=== PATIENT | female | born 1975 | race Caucasian/White ===

== ENCOUNTER 2017-06-11 15:05 | Emergency (ER) | payer BC, OTHER ==
[~2017-06-11] VITALS: Ht 152.4 cm; Wt 75.0 kg
[2017-06-11 15:12] VITALS: TEMP 36.7; Ht 152.4 cm; Wt 75.0 kg
[2017-06-11 15:20] VITALS: O2SAT 100
[2017-06-11] MEDS ORDERED: NITROGLYCERIN 0.4 MG SL PER TAB CHARGE SL STA (15:27)
[2017-06-11] MEDS ORDERED: ONDANSETRON INJ 2 MG/ML 2 ML VIAL IV STA (15:27)
[2017-06-11] MEDS ORDERED: MoRPHine SULFATE 4 MG/ML 1 ML CARP\\VIAL IV STA (15:27)
[2017-06-11] MEDS ORDERED: ASPIRIN 324 MG CHEW PO STA (15:27)
--- NOTE | 2017-06-11 15:34 | EMERGENCY ROOM VISIT NOTE ---
History First contact with patient: 15:15 Chief Complaint: CHEST PAIN Stated Complaint: CHEST PAIN Nursing Triage Summary: Pt. reports chest pressure/heaviness that started this morning. She also reports pain that radiates down the left arm and has tingling in her fingers. History of Present Illness The patient is a 41 year old female who presents to the Emergency Room via private vehicle with complaints of "chest pain". The patient states that around 8 AM she was at work, and developed sudden onset external chest pain that radiates to her left arm, and is described as a crushing sensation. She rates the pain as a 7/10. She denies any cardiac history or history of blood clots. Her grandmother does have a significant cardiac history. She states the pain is not worse with pressing, but is worse with deep inspiration. She does not smoke. She denies chance of . Review of Systems A complete 10-point Review of Systems was discussed with the patient, with pertinent positives and negatives listed in the History of Present Illness. All remaining Review of Systems questions can be considered negative unless otherwise specified. Past Medical/Surgical History No pertinent. Family History Maternal grandmother significant cardiac history. Social History Smoking Status: Never Smoker Stable. Current/Historical Medications No Active Prescriptions or Reported Meds Physical Exam Vital Signs Date Time Temp Pulse Resp B/P (MAP) Pulse Ox O2 Delivery O2 Flow Rate FiO2 06/11/17 21:15 96 15 152/97 98 06/11/17 19:30 85 15 171/90 97 Room Air 06/11/17 19:05 94 16 169/106 97 Room Air 06/11/17 18:01 94 06/11/17 17:30 79 16 171/83 98 Room Air 06/11/17 16:16 83 21 172/79 100 Room Air 06/11/17 15:29 90 06/11/17 15:20 100 Room Air 06/11/17 15:20 100 Room Air 06/11/17 15:12 36.7 94 20 213/94 98 Room Air Physical Exam VITAL SIGNS - Vital signs and nursing notes were reviewed. Stable. Hypertensive. GENERAL -41-year-old female appearing her stated age who is in no acute distress. Communicates well with provider and answers questions appropriately. SKIN - Without rashes. HEAD - NC/AT. EYES - PERRL with EOMI bilaterally. Sclera anicteric. EARS - No deformities of external structures noted on gross examination bilaterally. NOSE - Midline and without cyanosis. No epistaxis or purulent drainage noted. MOUTH/OROPHARYNX - Without perioral cyanosis. NECK - Neck with FROM. Supple to palpation. LUNGS - Chest wall symmetric without accessory muscle use, intercostals retractions, or central cyanosis. Normal vesicular breath sounds CTA B/L. No wheezes, rales, or rhonchi appreciated. CARDIAC - RRR with S1/S2. No murmur, rubs, or gallops appreciated. ABDOMEN - Abdominal contour normal without pulsations or visible masses. BS normoactive all four quadrants. No tenderness, palpable masses, hepatosplenomegaly, or ascites noted. EXTREMITIES - No clubbing or peripheral cyanosis. No pretibial edema present. + 5/5 strength noted in UE/LE bilaterally. NEUROLOGIC - Cranial nerves II through XII grossly intact. Sensory intact to light touch throughout. PSYCH - A&O, and cooperates fully with examiner. Pt is very pleasant and interacts well with examiner. Medical Decision & Procedures ER Provider Diagnostic Interpretation: CT ANGIOGRAPHY OF THE CHEST, PULMONARY EMBOLUS PROTOCOL CLINICAL HISTORY: Inspiratory chest pain. Elevated d-dimer. COMPARISON STUDY: Chest radiograph performed earlier today. TECHNIQUE: Following IV administration of 78 mL of Optiray-320, helical axial images of the chest were obtained utilizing the pulmonary embolus protocol. Maximal intensity projections and sagittal and coronal reformats were viewed on an independent 3D workstation. IV contrast was administered without complication. A dose lowering technique was utilized adhering to the principles of ALARA. CT DOSE: 600.31 mGy.cm FINDINGS: No pulmonary emboli are identified. The size of the heart is at the upper limits of normal. There is no pericardial effusion. There is no thoracic aortic dissection. No enlarged axillary, mediastinal or hilar lymph nodes are present. There is no consolidation to suggest pneumonia. Central airways are patent. No pneumothorax or pleural effusion is present. There are no suspicious pulmonary nodules. Bony thorax is unremarkable. There is probable fatty infiltration of the liver. IMPRESSION: 1. No pulmonary emboli identified. 2. No acute intrathoracic findings. 3. Fatty infiltration of the liver. Electronically signed by: Sylvester Henry M.D. 06/11/2017 6:40 PM Dictated Date/Time: 06/11/2017 6:34 PM CHEST ONE VIEW PORTABLE HISTORY: Atypical Chest pain COMPARISON: None. FINDINGS: The lungs are clear. Cardiac silhouette is normal in size. No pleural effusions. No pneumothorax. IMPRESSION: No acute process. Electronically signed by: Stephen Mosquera M.D. 06/11/2017 3:58 PM Dictated Date/Time: 06/11/2017 3:57 PM Laboratory Results 06/11/17 16:56 Red Blood Count 4.24, Mean Corpuscular Volume 92.2, Mean Corpuscular Hemoglobin 31.8, Mean Corpuscular Hemoglobin Concent 34.5, Mean Platelet Volume 9.8, Neutrophils (%) (Auto) 69.0, Lymphocytes (%) (Auto) 22.1, Monocytes (%) (Auto) 7.7, Eosinophils (%) (Auto) 0.6, Basophils (%) (Auto) 0.2, Neutrophils # (Auto) 7.87, Lymphocytes # (Auto) 2.52, Monocytes # (Auto) 0.88, Eosinophils # (Auto) 0.07, Basophils # (Auto) 0.02 06/11/17 16:56 Test 06/11/17 16:20 06/11/17 16:56 06/11/17 19:25 Urine Color YELLOW Urine Appearance CLOUDY (CLEAR) Urine pH 5.0 (4.5-7.5) Urine Specific [place] 1.017 (1.000-1.030) Urine Protein NEG (NEG) Urine Glucose (UA) NEG (NEG) Urine Ketones TRACE (NEG) Urine Occult Blood TRACE (NEG) Urine Nitrite NEG (NEG) Urine Bilirubin NEG (NEG) Urine Urobilinogen NEG (NEG) Urine Leukocyte Esterase NEG (NEG) Urine WBC (Auto) 0 /hpf (0-5) Urine RBC (Auto) 0-4 /hpf (0-4) Urine Hyaline Casts (Auto) 1-5 /lpf (0-5) Urine Epithelial Cells (Auto) 5-10 /lpf (0-5) Urine Bacteria (Auto) NEG (NEG) Urine Test NEG (NEG) White Blood Count 11.40 K/uL (4.8-10.8) Red Blood Count 4.24 M/uL (4.2-5.4) Hemoglobin 13.5 g/dL (12.0-16.0) Hematocrit 39.1 % (37-47) Mean Corpuscular Volume 92.2 fL (80-100) Mean Corpuscular Hemoglobin 31.8 pg (25-34) Mean Corpuscular Hemoglobin Concent 34.5 g/dl (32-36) Platelet Count 353 K/uL (130-400) Mean Platelet Volume 9.8 fL (7.4-10.4) Neutrophils (%) (Auto) 69.0 % Lymphocytes (%) (Auto) 22.1 % Monocytes (%) (Auto) 7.7 % Eosinophils (%) (Auto) 0.6 % Basophils (%) (Auto) 0.2 % Neutrophils # (Auto) 7.87 K/uL (1.4-6.5) Lymphocytes # (Auto) 2.52 K/uL (1.2-3.4) Monocytes # (Auto) 0.88 K/uL (0.11-0.59) Eosinophils # (Auto) 0.07 K/uL (0-0.5) Basophils # (Auto) 0.02 K/uL (0-0.2) RDW Standard Deviation 41.6 fL (36.4-46.3) RDW Coefficient of Variation 12.3 % (11.5-14.5) Immature Granulocyte % (Auto) 0.4 % Immature Granulocyte # (Auto) 0.04 K/uL (0.00-0.02) Prothrombin Time 10.4 SECONDS (9.0-12.0) Prothromb Time International Ratio 1.0 (0.9-1.1) Activated Partial Thromboplast Time 25.3 SECONDS (21.0-31.0) Partial Thromboplastin Ratio 1.0 D-Dimer 560 ug/L FEU (0-500) Anion Gap 9.0 mmol/L (3-11) Est Creatinine Clear Calc Drug Dose 85.9 ml/min Estimated GFR () 109.4 Estimated GFR (Non- 94.4 BUN/Creatinine Ratio 11.8 (10-20) Calcium Level 8.8 mg/dl (8.5-10.1) Magnesium Level 2.2 mg/dl (1.8-2.4) Total Bilirubin 0.4 mg/dl (0.2-1) Aspartate Amino Transf (AST/SGOT) 13 U/L (15-37) Alanine Aminotransferase (ALT/SGPT) 29 U/L (12-78) Alkaline Phosphatase 79 U/L (45-117) Total Creatine Kinase 104 U/L (26-192) Creatine Kinase MB 1.3 ng/ml (0.5-3.6) Creatine Kinase MB Ratio 1.3 (0-3.0) Total Protein 7.8 gm/dl (6.4-8.2) Albumin 3.8 gm/dl (3.4-5.0) Globulin 4.0 gm/dl (2.5-4.0) Albumin/Globulin Ratio 1.0 (0.9-2) Lipase 232 U/L (73-393) Thyroid Stimulating Hormone (TSH) 2.020 uIu/ml (0.300-4.500) Lyme Disease IgG Antibody NEG (NEG) Lyme Disease IgM Antibody NEG (NEG) Troponin I < 0.015 ng/ml (0-0.045) Medications Administered Medications (Trade) Dose Ordered Sig/Ender Route Start Time Stop Time Status Last Admin Dose Admin Morphine Sulfate (MoRPHine SULFATE INJ) 4 mg NOW STAT IV 06/11/17 15:27 06/11/17 15:30 DC 06/11/17 16:18 4 MG Ondansetron HCl (Zofran Inj) 4 mg NOW STAT IV 06/11/17 15:27 06/11/17 15:30 DC 06/11/17 16:19 4 MG Aspirin (Aspirin Chew) 324 mg NOW STAT PO 06/11/17 15:27 06/11/17 15:30 DC 06/11/17 16:17 324 MG Nitroglycerin (Nitrostat Tab) 0.4 mg NOW STAT SL 06/11/17 15:27 06/11/17 15:30 DC 06/11/17 16:18 0.4 MG Al Hydroxide/Mg Hydroxide (Maalox Susp) 30 ml STK-MED ONCE .ROUTE 06/11/17 20:59 06/11/17 21:00 DC 06/11/17 21:01 30 ML Lidocaine HCl (Viscous Lidocaine 2% Soln) 20 ml STK-MED ONCE .ROUTE 06/11/17 20:59 06/11/17 21:00 DC 06/11/17 21:01 20 ML Medical Decision Patient was seen and evaluated as above. She presents to us today with chest pain, and hypertension. This is new onset since 8 AM this morning. No underlying past medical history contributory to her symptoms here today. She was given aspirin, and nitroglycerin. She was also given morphine. She is reevaluated and feeling better. Troponin was negative. EKG reveals normal sinus rhythm, with a nonspecific ST segment abnormality. Repeat troponin after over 2 hours was still negative. It is unlikely cardiac, however given her hypertension so this must still be considered. D-dimer was elevated, therefore CT the chest was obtained. Results as above. She was informed upon the fatty infiltration of the liver. She was offered inpatient observation for her chest pain, and after discussing benefits versus risks, she elected to go home, and follow-up with the workup in the outpatient setting. I do believe this is reasonable. CBC revealed slight leukocytosis, which I believe to be at this time nonemergent. No concerning anemia. No concerning metabolic abnormality. Urine negative. Negative test. Lyme disease testing negative. This time the patient does appear stable for outpatient management. Case was discussed with the attending physician. Patient was educated upon management, educated upon worrisome symptoms which to return, had questions answered prior to discharge, and was discharged home in good condition. Patient was given a GI cocktail prior to discharge. In evaluation treatment this patient the following differential diagnoses were entertained: MO, PE, costochondritis, reflux, among others. Impression Primary Impression: Chest wall pain Departure Information Dispostion Home / Self-Care Condition GOOD Prescriptions No Active Prescriptions or Reported Meds Referrals No Doctor, Assigned (PCP) Forms Call Back Authorization, HOME CARE DOCUMENTATION FORM, IMPORTANT VISIT INFORMATION Patient Instructions My [facility] Additional Instructions You have been treated in the Emergency Department your chest Pain. For pain control, you can use the following [id number] medicines (if >12 yo): - Regular strength (325mg/tab) Tylenol (acetaminophen) 2 tabs every 4-6 hours as needed. Do not exceed 12 tablets in a 24 hour period. Avoid taking more than 3 grams (3000 mg) of Tylenol per day. This includes any other sources of acetaminophen you may take on a regular basis. - Regular strength (200 mg/tab) Advil (ibuprofen) 1-2 tabs every 4-6 hours as needed. Do not exceed a dose of 3200 mg per day. Drink plenty of water and stay well hydrated. As with any trip to the Emergency Department, you should follow-up with your Primary Care Provider from today's visit. I recommend potentially an echo as well as further heart testing as potentially arranged by your family doctor. Return to the emergency department if your symptoms persist despite treatment plan outlined above or if the following symptoms occur: increased fevers, chills , worsening nausea/vomiting, blood in your stool or urine or worsening chest pain. Please return with any new/concerning symptoms.
--- NOTE | 2017-06-11 15:59 | DIAGNOSTIC IMAGING REPORT ---
CHEST ONE VIEW PORTABLE HISTORY: Atypical Chest pain COMPARISON: None. FINDINGS: The lungs are clear. Cardiac silhouette is normal in size. No pleural effusions. No pneumothorax. IMPRESSION: No acute process. Electronically signed by: Stephen Mosquera M.D. 06/11/2017 3:58 PM Dictated Date/Time: 06/11/2017 3:57 PM
[2017-06-11 16:40] LABS: MANUAL MICROSCOPIC REQUIRED? NO; REVIEW REQ? NO; URINE APPEARANCE CLOUDY (CLEAR); URINE BILIRUBIN NEG (NEG); URINE COLOR YELLOW; URINE NITRITE NEG (NEG); URINE SPECIFIC GRAVITY 1.017 (1.000-1.030); UROBILINOGEN NEG (NEG); ZZUR CULT IF INDIC CLEAN CATCH NO
[2017-06-11 17:11] LABS: BASO % 0.2 %; BASO ABS # 0.02 K/uL (0-0.2); COMPLETE YES; EOS % 0.6 %; HEMATOCRIT 39.1 % (37-47); IG% 0.4 %; LYMPH % 22.1 %; LYMPH ABS # 2.52 K/uL (1.2-3.4); MEAN CELL VOLUME 92.2 fL (80-100); MEAN CORPUSCULAR HEMOGLOBIN 31.8 pg (25-34); MEAN CORPUSCULAR HGB CONC 34.5 g/dl (32-36); MEAN PLATELET VOLUME 9.8 fL (7.4-10.4); MONO % 7.7 %; PLATELET COUNT 353 K/uL (130-400); RED BLOOD COUNT 4.24 M/uL (4.2-5.4)
[2017-06-11 17:23] LABS: PROTHROMBIN TIME (PATIENT) 10.4 SECONDS (9.0-12.0)
[2017-06-11 17:33] LABS: ALT/SGPT 29 U/L (12-78); AST/SGOT 13 U/L (15-37); BLOOD UREA NITROGEN 9 mg/dl (7-18); BUN/CREATININE RATIO 11.8 (10-20); CALCIUM 8.8 mg/dl (8.5-10.1); CARBON DIOXIDE 22 mmol/L (21-32); CHLORIDE 109 mmol/L (98-107); CREATININE 0.78 mg/dl (0.60-1.20); GLUCOSE 96 mg/dl (70-99); MAGNESIUM 2.2 mg/dl (1.8-2.4); POTASSIUM 3.7 mmol/L (3.5-5.1); SODIUM 140 mmol/L (136-145)
[2017-06-11 17:44] LABS: ALKALINE PHOSPHATASE 79 U/L (45-117); CKMB/CK RATIO 1.3 (0-3.0)
[2017-06-11] MEDS ORDERED: OPTIRAY 320 IV PRN (18:00)
[2017-06-11 18:06] LABS: LYME DISEASE AB IGG NEG (NEG); LYME DISEASE AB IGM NEG (NEG)
--- NOTE | 2017-06-11 18:41 | DIAGNOSTIC IMAGING REPORT ---
CT ANGIOGRAPHY OF THE CHEST, PULMONARY EMBOLUS PROTOCOL CLINICAL HISTORY: Inspiratory chest pain. Elevated d-dimer. COMPARISON STUDY: Chest radiograph performed earlier today. TECHNIQUE: Following IV administration of 78 mL of Optiray-320, helical axial images of the chest were obtained utilizing the pulmonary embolus protocol. Maximal intensity projections and sagittal and coronal reformats were viewed on an independent 3D workstation. IV contrast was administered without complication. A dose lowering technique was utilized adhering to the principles of ALARA. CT DOSE: 600.31 mGy.cm FINDINGS: No pulmonary emboli are identified. The size of the heart is at the upper limits of normal. There is no pericardial effusion. There is no thoracic aortic dissection. No enlarged axillary, mediastinal or hilar lymph nodes are present. There is no consolidation to suggest pneumonia. Central airways are patent. No pneumothorax or pleural effusion is present. There are no suspicious pulmonary nodules. Bony thorax is unremarkable. There is probable fatty infiltration of the liver. IMPRESSION: 1. No pulmonary emboli identified. 2. No acute intrathoracic findings. 3. Fatty infiltration of the liver. Electronically signed by: Sylvester Henry M.D. 06/11/2017 6:40 PM Dictated Date/Time: 06/11/2017 6:34 PM
[2017-06-11] MEDS ORDERED: GI COCKTAIL PO STA (20:26)
[2017-06-11] MEDS ORDERED: ALUMINUM/MAGNESIUM SUSP 30 ML UDC ONE (20:59)
[2017-06-11] MEDS ORDERED: LIDOCAINE HCL 2% VISC SOLN 20 ML UDC ONE (20:59)
[2017-06-11 21:15] VITALS: BP 152/97; PULSE 96; O2SAT 98
== END 2017-06-11 21:15 | disposition home or self-care (01) ==
LOC: C.EDB 15:07 → C.EDA 21:15
DX: R07.89 Other chest pain (principal); R03.0 Elevated blood-pressure reading, without diagnosis of hypertension; K76.0 Fatty (change of) liver, not elsewhere classified

== ENCOUNTER 2017-12-17 05:47 | Emergency (ER) | payer BC ==
[~2017-12-17] VITALS: Ht 154.9 cm; Wt 87.5 kg
[2017-12-17 05:57] VITALS: TEMP 36.7; Ht 154.9 cm; Wt 87.5 kg
--- NOTE | 2017-12-17 06:15 | EMERGENCY ROOM VISIT NOTE ---
History Report prepared by Jesse: Bryant Mills Under the Supervision of: Dr. Gustavo Ludwig M.D. First contact with patient: 06:02 Chief Complaint: URINARY SYMPTOMS Stated Complaint: BLOOD IN URINE Nursing Triage Summary: Pt was to [facility] on Thursday for same sx and was told she didn't have a UTI. Pt presents today with blood in her urine and pain in lower back. History of Present Illness The patient is a 42 year old female who presents to the Emergency Room with complaints of an episode of hematuria occurring today. The patient states that she went to an acute care facility yesterday because she thought she had a UTI. She notes that she was told that she did not have a UTI despite her symptoms. She reports that she has pressure in her bladder and was having urinary burning. The patient states that she had hematuria this morning, prompting her visit to the emergency department. She also complains of back pain, but is unsure if her back pain is related to her urinary symptoms as she was moving wood a few days ago. She denies any leg swelling, nausea, diarrhea, and rashes. She notes that her pain worsens with walking. She reports that she has a history of UTIs, with her last infection being 7-8 years ago. The patient states that she also has a history of a section. Source of History: patient Onset: today Position: other (bladder) Quality: pressure, burning, other (hematuria) Timing: other (an episode) Modifying Factors (Worsening): other (walking) Associated Symptoms: + back pain, No nausea, No diarrhea, No rash Note: The patient also denies any leg swelling . Review of Systems See HPI for pertinent positives & negatives. A total of 6 systems reviewed and were otherwise negative. Past Medical & Surgical Medical Problems: (1) UTI (urinary tract infection) Surgical Problems: (1) Previous section Family History No pertinent family history stated. Social History Smoking Status: Never Smoker Marital Status: Housing Status: lives with friends Occupation Status: employed Current/Historical Medications Scheduled Cephalexin Monohydrate (Keflex), 500 MG PO TID Scheduled PRN Phenazopyridine HCl (Pyridium), 200 MG PO TID PRN for Frequency/Burning w/ Urination Allergies Coded Allergies: No Known Allergies (Unverified , 06/11/17) Physical Exam Vital Signs Date Time Temp Pulse Resp B/P (MAP) Pulse Ox O2 Delivery O2 Flow Rate FiO2 12/17/17 06:37 68 16 124/65 98 12/17/17 05:57 36.7 72 20 156/88 98 Room Air Physical Exam GENERAL: Patient is uncomfortable appearing and in mild distress. EYES: No scleral icterus, unremarkable pupils. ENT: Mucous membranes moist, no nasal congestion. NECK: No masses appreciated, no meningismus, trachea is midline. RESPIRATORY: No dyspnea. Clear to auscultation and equal bilaterally. No wheeze , no rhonchi. CARDIOVASCULAR: Regular rate and rhythm. No murmurs, rubs, gallops appreciated. GASTROINTESTINAL: Abdomen soft, no peritonitis. Bowel sounds positive. No masses appreciated. Vague suprapubic tenderness to palpation. BACK: No midline tenderness, no CVA tenderness SKIN: No rash, no jaundice, no diaphoresis. Medical Decision & Procedures Laboratory Results Test 12/17/17 06:00 12/17/17 06:07 Urine Color YELLOW Urine Appearance TURBID (CLEAR) Urine pH 5.0 (4.5-7.5) Urine Specific [place] 1.030 (1.000-1.030) Urine Protein 2+ (NEG) Urine Glucose (UA) NEG (NEG) Urine Ketones TRACE (NEG) Urine Occult Blood 3+ (NEG) Urine Nitrite NEG (NEG) Urine Bilirubin NEG (NEG) Urine Urobilinogen NEG (NEG) Urine Leukocyte Esterase LARGE (NEG) Urine WBC (Auto) >30 /hpf (0-5) Urine RBC (Auto) >30 /hpf (0-4) Urine Hyaline Casts (Auto) 1-5 /lpf (0-5) Urine Epithelial Cells (Auto) >30 /lpf (0-5) Urine Bacteria (Auto) NEG (NEG) Bedside Urine Test NEG (NEG) Laboratory results as reviewed by me. Medications Administered Medications (Trade) Dose Ordered Sig/Ender Route Start Time Stop Time Status Last Admin Dose Admin Cephalexin Monohydrate (Keflex Cap) 500 mg NOW ONCE PO 12/17/17 06:30 12/17/17 06:31 DC 12/17/17 06:26 500 MG Phenazopyridine HCl (Pyridium Tab) 200 mg NOW STAT PO 12/17/17 06:17 12/17/17 06:18 DC 12/17/17 06:26 200 MG ED Course 0603: The patient was evaluated in room A11. A complete history and physical exam was performed. 629: Reevaluated the patient. Discussed results and discharge instructions: she verbalized understanding and agreement. The patient is ready for discharge. Medical Decision 42 yr old with a few days UTI symptoms gradually worsening and now having dark bloody urine. Denies rash/blisters but admits concerns STI which I advised she see PCP for further testing. With UA and symptoms seems reasonable going ahead with treating with ABX. We discussed fact that Keflex will not treat STI but with her concerns she should have full STI testing beyond just GC/Chlamydia. She is stable, comfortable with this plan and discharged in no distress. Medication Reconcilliation Current Medication List: was personally reviewed by me Blood Pressure Screening Patient's blood pressure: Elevated blood pressure Blood pressure disposition: Elevated BP felt to be situational Impression Primary Impression: Acute hemorrhagic cystitis Scribe Attestation The scribe's documentation has been prepared under my direction and personally reviewed by me in its entirety. I confirm that the note above accurately reflects all work, treatment, procedures, and medical decision making performed by me. Departure Information Dispostion Home / Self-Care Prescriptions Cephalexin Monohydrate (KEFLEX) 500 Mg Cap 500 MG PO TID for 5 Days, #15 CAP Prov: Gustavo Ludwig M.D. 12/17/17 Phenazopyridine HCl (Pyridium) 200 Mg Tab 200 MG PO TID Y for Frequency/Burning w/Urination, #9 TAB Prov: Gustavo Ludwig M.D. 12/17/17 Referrals Primary Care Provider Forms HOME CARE DOCUMENTATION FORM, IMPORTANT VISIT INFORMATION Patient Instructions ED UTI Cystitis Female, My [facility]
[2017-12-17] MEDS ORDERED: PHENAZOPYRIDINE HCL 200 MG TAB PO STA (06:17)
[2017-12-17] MEDS ORDERED: PHEN-876 PO (06:29)
[2017-12-17] MEDS ORDERED: CEPH500C2 PO (06:29)
[2017-12-17] MEDS ORDERED: CEPHALEXIN MONOHYDRATE 250 MG CAP PO ONE (06:30)
[2017-12-17 06:37] VITALS: BP 124/65; PULSE 68; O2SAT 98
== END 2017-12-17 06:38 | disposition home or self-care (01) ==
LOC: C.EDB 05:48 → C.EDA 06:38
DX: N30.01 Acute cystitis with hematuria (principal); Z87.440 Personal history of urinary (tract) infections